=== PATIENT | male | born 1950 | race Caucasian/White ===

== ENCOUNTER → 2018-06-24 | Outpatient (CLI) | payer MEDICARE, MEDICAID ==
--- NOTE | 2018-06-24 15:36 | RADIOLOGY REPORT (SQ) ---
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 RADIONUCLIDE AND DOSE: 21.3 millicuries Tc99m MDP. The route of agent administration: Intravenous. ADDITIONAL DRUGS AND DOSES: None. TECHNIQUE: Routine delayed images at 3 hour post radionuclide injection acquired of the bony skeleto n including anterior and posterior whole-body projections and additional focused images as needed. LIMITATIONS: None. FINDINGS: BONES: No areas suspicious for metastatic disease. Uptake in the right hip joint is likel y degenerative. Probable degenerative AC and shoulder and right knee changes as well. Paranasal si nus disease is present. KIDNEYS: Symmetric excretion without obstruction. OTHER: No other significant finding. IMPRESSION: No overtly suspicious lesions to suggest underlying metastatic disease. Findings as abo ve. COMMENT: Quality measure 147: No available prior imaging studies for comparison TECHNICAL DOCUMENTATION: JOB ID: [id number] [employer]- All Rights Reserved Reading location - IP/workstation name: [email or web address]
== END ==
LOC: RAD 10:46
PROVIDERS: ATTEND Urology
DX: C61 Malignant neoplasm of prostate (principal)
CPT/HCPCS: 78306; A9561; Q9969

== ENCOUNTER 2020-08-08 06:48 | Day surgery (SDC) | payer MEDICARE, MEDICAID ==
[~2020-08-08 06:48] MED LIST: BUPIVACAINE HCL 0.75% INJ/PF (7.5 MG/1 ML) 10 ML SDV OD PRN; KETOROLAC TROMETHAMINE 0.45% 4 DROP/0.4 ML DROPERETTE OD PRN; LIDOCAINE 4% INJ/PF (40 MG/ML) 5 ML AMPUL OD PRN
[2020-08-08] MEDS ORDERED: LIDOCAINE 1%/PHENYLEPHRINE 1.5% 1 ML VIAL ONE (06:54)
[2020-08-08] MEDS ORDERED: EPINEPHRINE INJ/PF 1 MG/1 ML AMPULE ONE (06:54)
[2020-08-08] MEDS: TETRACAINE HCL 0.5% OPH SOLN 4 ML OD PRN ×3 (07:16→07:56)
[2020-08-08] MEDS: TROPICAMIDE 1% OPH SOLN 15 ML OD PRN ×3 (07:16→07:41)
[2020-08-08] MEDS: BESIFLOXACIN HCL 0.6% OPH SUSP 5 ML BOTTLE OD PRN ×4 (07:17→08:56)
[2020-08-08] MEDS: CYCLOPENTOLATE 0.2%/PHENYLEPHRINE 1% OPH SOLN 2 ML OD PRN ×3 (07:17→07:41)
[2020-08-08] MEDS ORDERED: MIDAZOLAM 2 MG/2 ML INJ ONE (07:26)
[2020-08-08] MEDS: CHONDR SU A NA/HYALUR INTRAOC KIT (SURGICARE) ONE ×2 (08:10→08:43)
[2020-08-08] MEDS: PREDNISOLONE ACETATE 1% OPH SUSP 5 ML OD PRN ×2 (08:14→08:56)
[2020-08-08] MEDS: DORZOLAMIDE HCL 2%/TIMOLOL MALEAT 0.5% OPH SOLN 10 ML OD PRN ×2 (08:14→08:56)
[2020-08-08] MEDS ORDERED: HYALURONATE SODIUM SYRINGE 0.55 ML ONE (08:38)
[2020-08-08] MEDS ORDERED: CHONDR SU A NA/HYALUR SOD 0.5 ML DISP.SYRIN ONE (08:42)
--- NOTE | 2020-08-08 15:50 | Operative Report ---
Operative Report-[facility] Operative Report: DATE OF SURGERY: 08/08/2020 PREOPERATIVE DIAGNOSIS: CATARACT, RIGHT EYE. POSTOPERATIVE DIAGNOSIS: CATARACT, RIGHT EYE. PROCEDURE PERFORMED: PHACOEMULSIFICATION WITH POSTERIOR CHAMBER INTRAOCULAR LENS, RIGHT EYE. Complications: Removal of defective intraocular lens Intraocular Lens Model : DC rowell 31.5 Total Phaco Time: 56 sec SURGEON: JOSIANE DUTTA MD ANESTHESIA: TOPICAL WITH MAC. INDICATIONS FOR SURGERY: Difficulty reading road signs and TV captions. PROCEDURE: The patient was brought to the Operating Room and placed on the operative table. Following tetracaine drops, topical anesthesia was administered. This consisted of instrument wipe pledgets soaked in a solution of 4% Xylocaine mixed with 0.75% Marcaine in a 1:2 ratio. A 2 x 1 cm pledget was placed in the superior fornix. A 1 x 1 cm pledget was placed in the inferior fornix. The eye was patched shut for 5 minutes. The patch was removed. The eye was sterilely prepped and draped in the usual manner. Lid speculum was placed in the eye. The pledgets were removed. 4-0 black silk sutures were placed around the superior and the inferior rectus muscles to be used as traction. A conjunctival peritomy was made at the 10 o'clock position. Hemostasis was obtained with bipolar cautery. A posterior limbal groove was created using a crescent knife and dissected anteriorly towards the cornea. A sharp point blade was used to create a paracentesis site at the 2 o'clock position. 0.2 cc non preserved Lidocaine was injected into the anterior chamber. A 2.4 mm keratome was used to enter the anterior chamber through the groove. Viscoelastic was injected into the anterior chamber. An anterior capsulotomy was performed using Utrata forceps in a capsulorrhexis fashion. Hydrodissection and hydrodelineation were performed. Phacoemulsification was performed in [id number] technique. Following this, the I/A unit was used to remove residual cortex. Viscoelastic was injected into the capsular bag. After the intraocular lens was injected into the anterior chamber it was found to be deffective with scratches and a defect on the lens optic. It was decided to remove this lens. Additional viscoelastic was placed underneath the lens and a 2nd lens was injected inferior to the defective lens this lens centered nicely in the capsular bag. The wound was enlarged to approximately 3.5 mm. The lens cutters were inserted using ample viscoelastic above and beneath the lens. However after multiple attempts the lens could not be severed in half likely due to the high optic size. The wound was enlarged to approximately 4.5 mm and using a lens grasper the lens was removed gently through the incision. The I/A unit was used to remove residual viscoelastic. A 10.0 nylon X style suture was placed through the incision. the wound was seen to be watertight under high and low pressure, The intraocular lens was well centered. The pressure was adjusted in the eye to normal pressure. The 4-0 black silk sutures and lid speculum were removed. The eye was shielded after Besivance. prednisolone, and Cosopt drops were placed. The patient tolerated the procedure well and was sent to the Recovery Room in good condition.
== END 2020-08-08 09:58 | disposition home or self-care (01) ==
LOC: SC 06:48
PROVIDERS: ATTEND Ophthalmology
DX: H25.11 Age-related nuclear cataract, right eye (principal); H04.123 Dry eye syndrome of bilateral lacrimal glands; D23.122 Other benign neoplasm of skin of left lower eyelid, including canthus; H35.61 Retinal hemorrhage, right eye; I10 Essential (primary) hypertension; E78.00 Pure hypercholesterolemia, unspecified; F17.210 Nicotine dependence, cigarettes, uncomplicated; I69.354 Hemiplegia and hemiparesis following cerebral infarction affecting left non-dominant side
CPT/HCPCS: 66984; V2632; J2250; J3490 ×6; A9270; J0171